=== PATIENT | male | born 2005 | race Caucasian/White ===

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

== ENCOUNTER 2023-10-11 14:42 | Emergency (ER) | payer BC, SELFPAY ==
[2023-10-11 14:43] VITALS: BP 117/93; PULSE 73; RESP 18; TEMP 36.6; O2SAT 98; BMI 28.1
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
[2023-10-11] MEDS: oxyCODONE 5 MG Tablet PO (16:11)
[2023-10-11 16:16] VITALS: BP 110/84; PULSE 76; RESP 18; TEMP 36.8; O2SAT 99
== END 2023-10-11 16:17 | disposition home or self-care (01) ==
PROVIDERS: Emergency Provider Emergency Medicine; Visit Provider Emergency Medicine
DX: S42.021A Displaced fracture of shaft of right clavicle, initial encounter for closed fracture (principal); S40.811A Abrasion of right upper arm, initial encounter; V89.0XXA Person injured in unspecified motor-vehicle accident, nontraffic, initial encounter; Z87.891 Personal history of nicotine dependence
CPT/HCPCS: 73000; 73030; 99283

== ENCOUNTER 2023-10-21 07:35 | Day surgery (SDC) | payer BC, SELFPAY ==
[2023-10-21] VITALS (8 sets, daily range): BP systolic 113–144; BP diastolic 73–96; PULSE 84–109; RESP 14–17; TEMP 36.1–36.9; O2SAT 94–100; BMI 23.5
[2023-10-21] MEDS: Lactated Ringers 1,000 ML 15 ML IV (08:03)
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
--- NOTE | 2023-10-21 08:18 | PCM.PRE.AN2 ---
ASA Classification* ASA Classification ASA Classification: 2 Assessment & Plan Anesthesia* Anesthesia Assessment Anesthesia Assessment: Discussed sedation and/or anesthesia options, risks, benefits, and alternatives with patient/parents/legal guardian/POA. Questions invited. The patient/parents/legal guardian/POA seems to understand and agrees to proceed with anesthesia plan. Reviewed the physical assessment, medical history, allergy history and patient home medications list prior to surgery/procedure/anesthetic and documented any changes. Performed airway and anesthesia risk assessments. Anesthesia Type Anesthesia Type: General (see written pre anesthesia record for full assessment) Anesthesia Focused Assessment* Temperature: 98.4 F Pulse Rate: 84 Blood Pressure: 113/81 Respiratory Rate: 17 Pulse Ox: 100 Airway Assessment Mouth opens: >3 cm Mallampati Score: II Focused Labs Anesthesia Preop lab: CBC CHEMISTRY COAG Pre-Assessment Diagnosis/Proposed Procedure Planned Operative Procedure(s): OPEN REDUCTION INTERNAL FIXATION RIGHT CLAVICLE FRACTURE Anesthesia History Anesthesia History - vocational rehabilitation consultant: Anesthesia History - vocational rehabilitation consultant Hx Hospitalization No 10/15/23 12:24 Any Problems With Anesthesia No 10/15/23 12:24 Cholinesterase deficiency No 10/15/23 12:24 You/Your Family Experience No 10/15/23 12:24 fever (hyperthermia) with Relationship Recent Exposure to Contagious No 10/21/23 07:59 Disease Does patient have nerve No 10/15/23 12:24 stimulator Patient instructed to have device shut off --Does patient have Pacemaker No 10/21/23 07:59 or ICD? When Was Last Pacemaker Check QUESTION #4 FULL TEXT: You/Your Family Experience fever (hyperthermia) with Anesthesia Last Oral Intake Last Oral intake: Last Oral Intake NPO since 00:00 10/21/23 07:59 Meds taken in AM with sips of No 10/21/23 07:59 water? Meds patient instructed to take am of surgery PONV PONV - vocational rehabilitation consultant: PONV - vocational rehabilitation consultant Female No 10/15/23 12:24 HX of Motion Sickness No 10/15/23 12:24 HX of N/V After Surgery No 10/15/23 12:24 Non-Smoker Yes 10/15/23 12:24 Duration of Surgery greater No 10/15/23 12:24 than 60 minutes Number of Risk Factors 1 10/15/23 12:24 PONV Score Low Risk 10/15/23 12:24 Height & Weight Height & Weight: Anesthesia: Height & Weight Height 5 ft 6 in 10/21/23 07:59 Weight: 66 kg 10/21/23 07:59 Body Mass Index (BMI) 23.5 10/21/23 07:59 Respiratory Assessment Respiratory Assessment - vocational rehabilitation consultant: Respiratory Tract Infection Hx - vocational rehabilitation consultant Hx Respiratory Tract Infection No 10/15/23 12:24 STOP Sleep Apnea STOP Sleep Apnea - vocational rehabilitation consultant: STOP Sleep Apnea - vocational rehabilitation consultant Hx Hypertension No 10/15/23 12:24 Hx Sleep Apnea No 10/15/23 12:24 CPAP BIPAP Do you snore loudly (louder No 10/15/23 12:24 than talking or can be heard Do you often feel tired/ No 10/15/23 12:24 fatigued/ sleepy during daytime? Has anyone observed you stop No 10/15/23 12:24 breathing during sleep? STOP Results Negative 10/15/23 12:24 QUESTION #5 FULL TEXT : Do you snore loudly (louder than talking or can be heard through closed doors)? Tobacco Use History Tobacco Use History - vocational rehabilitation consultant: Tobacco Use History - vocational rehabilitation consultant Tobacco Use Smoking Status Former smoker 10/15/23 12:24 Hx Tobacco Use Yes 10/15/23 12:24 Years Smoking Packs Smoked per Day Smoking Cessation Date was Yes - quit smoking within 15 10/15/23 12:24 within the last 15 years years Hx Smoking Cessation Date Hx Smoking Cessation Counseling Hematologic Medial History Hematologic Hx - vocational rehabilitation consultant: Hematologic Medical Hx - rn clinical documentation Hx of Blood Transfusion No 10/15/23 12:24 Hx of Transfusion in last 3 No 10/15/23 12:24 Months Date of Last Transfusion (if within last 3 months) Ever experience any problems No 10/15/23 12:24 with transfusion(s)? Specify any problems Hx of Preganancy in last 3 N/A 10/15/23 12:24 Months Nurse Filling Out Transfusion [email or web address] 10/15/23 12:24 & Questions: Date: 10/15/23 10/15/23 12:24 Time: 12:26 10/15/23 12:24 Patient unable to answer at this time (ie. confused, unrespo /Reproduction History /Reproductive History - vocational rehabilitation consultant: /Reproductive Hx- vocational rehabilitation consultant Hx Now Gestational Age (in weeks): EDC: Hx Hx Para Hx Section SAB Active Medications Active Medications: Current Medications Generic Name Dose Route Start Last Admin Trade Name Freq PRN Reason Stop Dose Admin Cefazolin Sodium 2 gm/ Sodium 110 mls @ 150 mls/hr 10/21/23 09:10 Chloride IV 10/21/23 09:53 PREOP ONE Lactated Ringer's 1,000 mls @ 15 mls/hr 10/21/23 07:45 10/21/23 08:03 IV 15 mls/hr .Q48H MELVINA Administration PFSH Medical History Smokeless tobacco use Fever Home Medications ?Medication ?Instructions ?Recorded ?Last Taken ?Type acetaminophen 500 mg capsule 1,000 mg PO Q8H PRN PRN pain 10/15/23 10/20/23 History oxycodone 5 mg capsule 5 mg PO Q8H 10/15/23 10/20/23 History Allergy/AdvReac Type Severity Reaction Status Date / Time No Known Allergies Allergy Verified 10/21/23 07:59 Family History Father Myocardial infarction Social History Smoking Status: Former smoker quit date: 05/13/21 pack-years: 1 Tobacco: How many years used: 1 alcohol intake: never Review of Systems (Anesthesia) ROS Narrative System reviewed and no additional complaints, except as documented.
--- NOTE | 2023-10-21 08:20 | PCM.PRE.AN2 ---
ASA Classification* ASA Classification ASA Classification: 2 Assessment & Plan Anesthesia* Anesthesia Assessment Anesthesia Assessment: Discussed sedation and/or anesthesia options, risks, benefits, and alternatives with patient/parents/legal guardian/POA. Questions invited. The patient/parents/legal guardian/POA seems to understand and agrees to proceed with anesthesia plan. Reviewed the physical assessment, medical history, allergy history and patient home medications list prior to surgery/procedure/anesthetic and documented any changes. Performed airway and anesthesia risk assessments. Anesthesia Type Anesthesia Type: General (see written pre anesthesia record for full assessment) Anesthesia Focused Assessment* Temperature: 98.4 F Pulse Rate: 84 Blood Pressure: 113/81 Respiratory Rate: 17 Pulse Ox: 100 Airway Assessment Mouth opens: >3 cm Mallampati Score: II Focused Labs Anesthesia Preop lab: CBC CHEMISTRY COAG Pre-Assessment Diagnosis/Proposed Procedure Planned Operative Procedure(s): OPEN REDUCTION INTERNAL FIXATION RIGHT CLAVICLE FRACTURE Anesthesia History Anesthesia History - optics test technician: Anesthesia History - optics test technician Hx Hospitalization No 10/15/23 12:24 Any Problems With Anesthesia No 10/15/23 12:24 Cholinesterase deficiency No 10/15/23 12:24 You/Your Family Experience No 10/15/23 12:24 fever (hyperthermia) with Relationship Recent Exposure to Contagious No 10/21/23 07:59 Disease Does patient have nerve No 10/15/23 12:24 stimulator Patient instructed to have device shut off --Does patient have Pacemaker No 10/21/23 07:59 or ICD? When Was Last Pacemaker Check QUESTION #4 FULL TEXT: You/Your Family Experience fever (hyperthermia) with Anesthesia Last Oral Intake Last Oral intake: Last Oral Intake NPO since 00:00 10/21/23 07:59 Meds taken in AM with sips of No 10/21/23 07:59 water? Meds patient instructed to take am of surgery PONV PONV - optics test technician: PONV - optics test technician Female No 10/15/23 12:24 HX of Motion Sickness No 10/15/23 12:24 HX of N/V After Surgery No 10/15/23 12:24 Non-Smoker Yes 10/15/23 12:24 Duration of Surgery greater No 10/15/23 12:24 than 60 minutes Number of Risk Factors 1 10/15/23 12:24 PONV Score Low Risk 10/15/23 12:24 Height & Weight Height & Weight: Anesthesia: Height & Weight Height 5 ft 6 in 10/21/23 07:59 Weight: 66 kg 10/21/23 07:59 Body Mass Index (BMI) 23.5 10/21/23 07:59 Respiratory Assessment Respiratory Assessment - optics test technician: Respiratory Tract Infection Hx - optics test technician Hx Respiratory Tract Infection No 10/15/23 12:24 STOP Sleep Apnea STOP Sleep Apnea - optics test technician: STOP Sleep Apnea - optics test technician Hx Hypertension No 10/15/23 12:24 Hx Sleep Apnea No 10/15/23 12:24 CPAP BIPAP Do you snore loudly (louder No 10/15/23 12:24 than talking or can be heard Do you often feel tired/ No 10/15/23 12:24 fatigued/ sleepy during daytime? Has anyone observed you stop No 10/15/23 12:24 breathing during sleep? STOP Results Negative 10/15/23 12:24 QUESTION #5 FULL TEXT : Do you snore loudly (louder than talking or can be heard through closed doors)? Tobacco Use History Tobacco Use History - optics test technician: Tobacco Use History - optics test technician Tobacco Use Smoking Status Former smoker 10/15/23 12:24 Hx Tobacco Use Yes 10/15/23 12:24 Years Smoking Packs Smoked per Day Smoking Cessation Date was Yes - quit smoking within 15 10/15/23 12:24 within the last 15 years years Hx Smoking Cessation Date Hx Smoking Cessation Counseling Hematologic Medial History Hematologic Hx - optics test technician: Hematologic Medical Hx - welder fitter helper Hx of Blood Transfusion No 10/15/23 12:24 Hx of Transfusion in last 3 No 10/15/23 12:24 Months Date of Last Transfusion (if within last 3 months) Ever experience any problems No 10/15/23 12:24 with transfusion(s)? Specify any problems Hx of Preganancy in last 3 N/A 10/15/23 12:24 Months Nurse Filling Out Transfusion [email or web address] 10/15/23 12:24 & Questions: Date: 10/15/23 10/15/23 12:24 Time: 12:26 10/15/23 12:24 Patient unable to answer at this time (ie. confused, unrespo /Reproduction History /Reproductive History - optics test technician: /Reproductive Hx- optics test technician Hx Now Gestational Age (in weeks): EDC: Hx Hx Para Hx Section SAB Active Medications Active Medications: Current Medications Generic Name Dose Route Start Last Admin Trade Name Freq PRN Reason Stop Dose Admin Cefazolin Sodium 2 gm/ Sodium 110 mls @ 150 mls/hr 10/21/23 09:10 Chloride IV 10/21/23 09:53 PREOP ONE Lactated Ringer's 1,000 mls @ 15 mls/hr 10/21/23 07:45 10/21/23 08:03 IV 15 mls/hr .Q48H MELVINA Administration PFSH Medical History Smokeless tobacco use Fever Home Medications ?Medication ?Instructions ?Recorded ?Last Taken ?Type acetaminophen 500 mg capsule 1,000 mg PO Q8H PRN PRN pain 10/15/23 10/20/23 History oxycodone 5 mg capsule 5 mg PO Q8H 10/15/23 10/20/23 History Allergy/AdvReac Type Severity Reaction Status Date / Time No Known Allergies Allergy Verified 10/21/23 07:59 Family History Father Myocardial infarction Social History Smoking Status: Former smoker quit date: 05/13/21 pack-years: 1 Tobacco: How many years used: 1 alcohol intake: never Review of Systems (Anesthesia) ROS Narrative System reviewed and no additional complaints, except as documented.
[2023-10-21] MEDS: Cefazolin 2 GM in 0.9% Normal Saline (100mL Bag) 100 ML IV (08:54)
[2023-10-21] MEDS: Bupiv/Epi 0.25% 30 ML Vial (09:45)
--- NOTE | 2023-10-21 11:13 | PCM.POST.ANE ---
Anesthesia: Postop Eval I Current Vital Signs Temperature: 96.9 F Pulse Rate: 98 Blood Pressure: 139/88 Respiratory Rate: 14 Pulse Ox: 98 Oxygen Delivery Method: Room Air Assessment Airway patent: Yes Spontaneous unlabored respirations: Yes Mental status: Awake nausea: No Vomiting: No Anesthesia Complication: No Fluid Hydration Crystalloid volume administer (ml): 1,000 Total IV fluid infused: 1,000 Progress Note Anesthesia document: Postop Eval 1 completed: Yes
[2023-10-21] MEDS: Ketorolac 30 MG/ML Syringe IV (11:53)
--- NOTE | 2023-10-21 11:55 | POSTOPAN2_ITS ---
Anesthesia Postop Eval I Sum Postop Eval Completion status Anesthesia document: Postop Eval 1 completed: Yes Anesthesia Postop Eval I Summary Anesthesia Postop Eval I Summary: Anesthesia Postop Eval I: Assessment Summary Airway patent Yes 10/21/23 11:14 MANAGER LABOR RELATIONS.[email or web address] Spontaneous unlabored Yes 10/21/23 11:14 MANAGER LABOR RELATIONS.MICHAEL respirations Mental status Awake 10/21/23 11:14 MANAGER LABOR RELATIONS.[email or web address] nausea No 10/21/23 11:14 MANAGER LABOR RELATIONS.SONIALOU Vomiting No 10/21/23 11:14 MANAGER LABOR RELATIONS.SONIALOU Anesthesia Postop Eval I: Fluid Summary Crystalloid volume administer 1,000 10/21/23 11:14 MANAGER LABOR RELATIONS.SONIALOU (ml) Colloids volume administered ( ml) Blood Product volume administered (ml) Total IV fluid infused 1,000 10/21/23 11:14 MANAGER LABOR RELATIONS.SONIALODonovan Anesthesia Postop Eval I: Summary Notes Anesthesia Complication No 10/21/23 11:14 MANAGER LABOR RELATIONS.MICHAEL Anesthesia Complication Comment: Post-operative progress note Anesthesia: Postop Eval II Evaluation Mental status: Awake Pain Level: 0 nausea: No Vomiting: No
--- NOTE | 2023-10-21 11:55 | PCM.POSTANE2 ---
Anesthesia Postop Eval I Sum Postop Eval Completion status Anesthesia document: Postop Eval 1 completed: Yes Anesthesia Postop Eval I Summary Anesthesia Postop Eval I Summary: Anesthesia Postop Eval I: Assessment Summary Airway patent Yes 10/21/23 11:14 RIPSAW OPERATOR.[email or web address] Spontaneous unlabored Yes 10/21/23 11:14 RIPSAW OPERATOR.MICHAEL respirations Mental status Awake 10/21/23 11:14 RIPSAW OPERATOR.[email or web address] nausea No 10/21/23 11:14 RIPSAW OPERATOR.SONIALOU Vomiting No 10/21/23 11:14 RIPSAW OPERATOR.SONIALOU Anesthesia Postop Eval I: Fluid Summary Crystalloid volume administer 1,000 10/21/23 11:14 RIPSAW OPERATOR.SONIALOU (ml) Colloids volume administered ( ml) Blood Product volume administered (ml) Total IV fluid infused 1,000 10/21/23 11:14 RIPSAW OPERATOR.SONIALODonovan Anesthesia Postop Eval I: Summary Notes Anesthesia Complication No 10/21/23 11:14 RIPSAW OPERATOR.MICHAEL Anesthesia Complication Comment: Post-operative progress note Anesthesia: Postop Eval II Evaluation Mental status: Awake Pain Level: 0 nausea: No Vomiting: No
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
== END 2023-10-21 13:00 | disposition home or self-care (01) ==
LOC: SDC 07:36 → AC 07:37
PROVIDERS: Referring Provider Student in an Organized Health Care Education/Training Program; Visit Provider Student in an Organized Health Care Education/Training Program
PROC: (CPT 23515; principal; 2023-10-21 08:50)
DX: S42.021A Displaced fracture of shaft of right clavicle, initial encounter for closed fracture (principal); X58.XXXA Exposure to other specified factors, initial encounter; Z87.891 Personal history of nicotine dependence
CPT/HCPCS: 23515; 00450; 73000; 76000; C1713; J7120; J2405